=== PATIENT | male | born 1930 | race Caucasian/White ===

== ENCOUNTER 2020-09-25 11:14 | Observation (INO) | payer MEDICARE ==
[~2020-09-25] VITALS: Ht 175.3 cm; Wt 82.0 kg
[~2020-09-25 11:14] MED LIST: AMLO5TAB4 PO; CYAN1TAB29 PO; MELO7.5T31 PO; SIMV10TA PO; calcium,mag,zinc PO; instaflex PO
--- NOTE | 2020-09-25 11:25 | NUR ---
pt BIB [facility] from home for S/O L sided facial droop with confusion and expressive aphagia S/O at 1030 today. per report, pt was getting ready to go shopping and was trying to talk to his when he had his sx onset per report, at time of sx onset, pt had no SINGH, no dizziness, no loss or change of vision, no unilateral weakness. upon admit, pt sx have completely resolved. pt A&Ox4. [place]. +ambulatory. no facial droop noted. no difficulty breathing speaking or swallowing. pt has no c/o at this time other than feeling a little tired. Dr. Gaona evaluated pt upon arrival and pt has had head CT completed. pt to room 14. report to Sparkle JONES. pt at bedside
--- NOTE | 2020-09-25 11:30 | NUR ---
1055 code neuro prealert. 1056 code neuro paged. 1114 pt arrived / dr guzman at bedside. [address] 1120 neurology blue vaishnavi paged for dr guzman. 1131 2nd page for neurology.
--- NOTE | 2020-09-25 11:45 | NUR ---
per Dr. Gaona, code neuro to be cancelled. Sparkle JONES notified
--- NOTE | 2020-09-25 11:46 | NUR ---
PT RESTING ON ED GURNEY. NO NEURO DEFICITS NOTED AT THIS TIME. PT STATES "I FEEL FINE NOW. I'M JUST TIRED."
[2020-09-25 11:49] LABS: BASOPHILS % (AUTO) 0 % (0-1); EOSINOPHILS % (AUTO) 1 % (1-7); LYMPHOCYTES % (AUTO) 24 % (22-44); MEAN CORPUSCULAR HGB CONC 34.2 g/dL (33.2-36.2); MEAN PLATELET VOLUME 7.9 fL (7.4-10.4); MONOCYTES % (AUTO) 10 % (2-9); NEUTROPHILS % (AUTO) 65 % (42-75); PLATELET COUNT 207 x10^3/uL (130-400); RED BLOOD COUNT 4.72 x10^6/uL (4.38-5.82); RED CELL DISTRIBUTION WIDTH 13.7 % (9.4-14.8)
[2020-09-25 11:55] LABS: MD NO
[2020-09-25 11:56] LABS: INTERNATIONAL NORMALIZED RATIO 1.06 (0.93-1.1); PROTHROMBIN TIME 11.3 Seconds (9.6-11.5)
[2020-09-25 12:00] LABS: ALANINE AMINOTRANSFERASE 19 U/L (12-78); ALBUMIN 3.6 g/dL (3.4-5.0); CALCIUM 8.9 mg/dL (8.5-10.1); CREATININE 0.82 mg/dL (0.7-1.3)
[2020-09-25 12:02] LABS: ALKALINE PHOSPHATASE 48 U/L (45-117); BILIRUBIN,TOTAL 0.9 mg/dL (0.2-1.0); TOTAL PROTEIN 6.5 g/dL (6.4-8.2)
[2020-09-25 12:21] LABS: ANION GAP 5 mmol/L (5-15); CHLORIDE 111 mmol/L (98-107)
[2020-09-25] MEDS ORDERED: ASPIRIN 81 MG TABLET CHEW ONE (13:05)
[2020-09-25] MEDS ORDERED: SODIUM CHLORIDE FLUSH 10ML SYR IVF PRN (13:30)
[2020-09-25] MEDS ORDERED: ASPIRIN 81 MG TABLET CHEW PO ONE (13:30)
--- NOTE | 2020-09-25 13:47 | NUR ---
PT REPORT TO ROBERT BRADEN
[2020-09-25] MEDS ORDERED: hydrALAzine 20 MG/ML, 1ML IVPush PRN (14:00)
[2020-09-25] MEDS ORDERED: MELATONIN 5 MG TABLET PO PRN (14:00)
[2020-09-25] MEDS ORDERED: ACETAMINOPHEN 325 MG TABLET PO PRN (14:00)
[2020-09-25] MEDS ORDERED: ONDANSETRON 2MG/ML, 2ML IVPush PRN (14:00)
[2020-09-25] MEDS ORDERED: DOCUSATE 100 MG CAPSULE PO PRN (14:00)
[2020-09-25 14:19] LABS: FREE T4 (FREE THYROXINE) 1.13 ng/dL (0.76-1.46); TROPONIN I < 0.015 ng/mL (0.000-0.045)
[2020-09-25 14:48] LABS: HCT (SEDRATE) 44.1 % (39.2-51.8)
[2020-09-25] MEDS ORDERED: METO-282 PO (15:09)
[2020-09-25] MEDS ORDERED: AMLO-210 PO (15:28)
[2020-09-25] MEDS: ENOXAPARIN 40 MG/0.4 ML SQ SCH (15:36)
[2020-09-25 15:37] VITALS: BP 183/93
[2020-09-25 17:07] VITALS: BP 143/73
[2020-09-25 17:17] LABS: MICROSCOPIC NOT IND
[2020-09-25 18:49] VITALS: BP 147/79
[2020-09-25 19:43] LABS: TROPONIN I < 0.015 ng/mL (0.000-0.045)
[2020-09-25] MEDS ORDERED: ATORVASTATIN 40 MG TABLET PO SCH (21:00)
[2020-09-25] MEDS: SODIUM CHLORIDE FLUSH 10ML SYR IVF SCH (21:15)
[2020-09-26 01:23] VITALS: BP 140/74
[2020-09-26 05:17] LABS: BASOPHILS % (AUTO) 1 % (0-1); EOSINOPHILS % (AUTO) 2 % (1-7); LYMPHOCYTES % (AUTO) 26 % (22-44); MEAN CORPUSCULAR HEMOGLOBIN 31.6 pg (27.5-34.5); MEAN CORPUSCULAR HGB CONC 33.6 g/dL (33.2-36.2); MEAN PLATELET VOLUME 8.3 fL (7.4-10.4); MONOCYTES % (AUTO) 11 % (2-9); NEUTROPHILS % (AUTO) 61 % (42-75); PLATELET COUNT 204 x10^3/uL (130-400); RED BLOOD COUNT 4.61 x10^6/uL (4.38-5.82); RED CELL DISTRIBUTION WIDTH 13.8 % (9.4-14.8)
[2020-09-26 05:28] LABS: ANION GAP 5 mmol/L (5-15); CALCIUM 8.7 mg/dL (8.5-10.1); CHLORIDE 112 mmol/L (98-107); CHOLESTEROL, TOTAL 142 mg/dL (140-239); CREATININE 0.82 mg/dL (0.7-1.3); TRIGLYCERIDES 85 mg/dL (50-200); VLDL CHOLESTEROL 17 mg/dL (0-25)
[2020-09-26 05:31] LABS: CHOL/HDL RATIO 3.4; HDL CHOL % 30 % (26-37); HDL CHOLESTEROL (DIRECT) 42 mg/dL (40-60); LDL CHOLESTEROL,CALCULATED 83 mg/dL (54-169)
[2020-09-26 05:35] LABS: MD NO
[2020-09-26] MEDS ORDERED: ASPIRIN 81 MG TABLET EC PO SCH (06:00)
[2020-09-26 07:50] VITALS: BP 171/84
[2020-09-26] MEDS: SODIUM CHLORIDE FLUSH 10ML SYR IVF SCH (09:00)
[2020-09-26] MEDS: ENOXAPARIN 40 MG/0.4 ML SQ SCH (15:31)
[2020-09-26] MEDS ORDERED: ASPI81TA45 PO (16:56)
[2020-09-26] MEDS ORDERED: ATOR40TA78 PO (16:56)
[2020-09-26] MEDS ORDERED: METO25TA35 PO (16:56)
[2020-09-26] MEDS ORDERED: LISI5TAB7 PO (17:04)
== END 2020-09-26 17:25 | disposition home or self-care (01) ==
LOC: ED 13:19 → INTOOBSV 14:24 → 5SO 14:24
PROVIDERS: ADMIT Hospitalist; ATTEND Hospitalist
DX: G45.9 Transient cerebral ischemic attack, unspecified (principal); G46.0 Middle cerebral artery syndrome; I11.0 Hypertensive heart disease with heart failure; I50.30 Unspecified diastolic (congestive) heart failure; E78.5 Hyperlipidemia, unspecified; R00.1 Bradycardia, unspecified; R94.31 Abnormal electrocardiogram [ECG] [EKG]; R47.01 Aphasia; Z86.73 Personal history of transient ischemic attack (TIA), and cerebral infarction without residual deficits; Z87.891 Personal history of nicotine dependence; Z96.652 Presence of left artificial knee joint; Z79.899 Other long term (current) drug therapy
CPT/HCPCS: 36415; 70450; 70551; 80048; 80053; 80061; 81003; 83735; 84100; 84439; 84443; 84484; 85025; 85610; 85651; 85730; 92523; 93005; 93306; 93880; 96372; 96374; 97161; 97165; 99291; G0378; J0360; J1650